=== PATIENT | female | born 1995 | race African-American/Black ===

== ENCOUNTER 2018-07-04 09:46 | Inpatient (IN) | payer OTHER ==
[2018-07-04 10:46] VITALS: BMI 44.2
[2018-07-04] MEDS: Lactated Ringer's 1,000 ML IV SCH ×2 (11:09→11:58)
[2018-07-04] MEDS ORDERED: Bicitra 30 ML UDCUP ONE (11:59)
[2018-07-04] MEDS ORDERED: Docusate 100 MG CAP PO PRN (12:01)
[2018-07-04] MEDS ORDERED: Acetaminophen 500 MG TAB PO PRN (12:01)
[2018-07-04] MEDS ORDERED: Promethazine HCl 25 MG/ML VIAL IM PRN ×2 (12:01→14:03)
[2018-07-04] MEDS ORDERED: Ondansetron PF 4 MG/2 ML Vial IVP PRN ×3 (12:01→14:55)
[2018-07-04 12:14] LABS: Hemoglobin 13.9 g/dL (12.0-16.0); Mean Corpuscular HGB CONC 34.5 g/dL (32.0-36.0); Mean Corpuscular Hemoglobin 30.1 pg (27.0-31.0); Mean Corpuscular Volume 87.3 fL (78.0-98.0); Mean Platelet Volume 7.6 fL (7.4-10.4); Platelet Count 243 thou/uL (130-400); RBC Distribution Width 12.2 % (11.5-14.5); Red Blood Cell (RBC) Count 4.61 mill/uL (4.20-5.40); White Blood Cell (WBC) Count 7.3 thou/uL (4.8-10.8)
[2018-07-04] MEDS ORDERED: Bicitra 30 ML UDCUP PO SCH (12:15)
[2018-07-04] MEDS ORDERED: CEFAZOLIN 2 GM in Premix Bag 1 BAG IVPB SCH (12:30)
[2018-07-04 12:53] LABS: HBSAg Index 0.25 S/CO (0-0.99); Hep B Surf Ag Non-Reactive S/CO (NonReactive)
[2018-07-04 13:43] LABS: Syphilis Antibody Nonreactive (Nonreactive); Syphilis Antibody Index 0.05 S/CO (<1.00 Non-Reactive)
[2018-07-04] MEDS ORDERED: Naloxone HCl 0.4 mg/ml Vial IVP PRN ×2 (14:03)
[2018-07-04] MEDS ORDERED: Ondansetron HCl/PF 4 MG/2 ML Vial IVP PRN (14:03)
[2018-07-04] MEDS ORDERED: HYDROmorphone 2 MG/ML VIAL SLOW IVP PRN (14:03)
[2018-07-04] MEDS ORDERED: Naloxone HCl 0.4 mg/ml Vial IV PRN (14:03)
[2018-07-04] MEDS ORDERED: L&D-Morphine 4 MG/ML VIAL SLOW IVP PRN (14:03)
[2018-07-04] MEDS ORDERED: diphenhydrAMINE 50 MG/ML VIAL IVP PRN (14:03)
[2018-07-04] MEDS ORDERED: Promethazine HCl 25 MG SUPP PR PRN (14:03)
[2018-07-04] MEDS ORDERED: Eucerin (Mineral Oil/Petrolatum,White) 30 gm Jar TOP PRN (14:03)
[2018-07-04] MEDS ORDERED: Meperidine HCl/PF 25 MG/ML VIAL SLOW IVP PRN (14:03)
--- NOTE | 2018-07-04 14:10 | PDOC.OPDEL ---
OB Operative/Delivery Note Delivery Dr/Surgeon: Leonides Assist: Canon Andres Pre-Delivery Diagnosis: scheduled section Procedure/Post Delivery Dx: repeat low transverse CS Weeks gestation: 39 Anesthesia: epidural - Findings A Sex: male - 1 min: 9 - 5 min: 9 - Additional Findings/Plan Placenta delivered: manual removal findings: low transverse hysterotomy without extension Estimated blood loss: 850 Compilations/Other Findings: Date of Procedure: 07/04/2018 Attending surgeon: Dr. Coyle Resident Surgeon: Dr. Elias Mackay Procedure: Repeat low transverse caesarean section X3 Preoperative Diagnosis: 1)Term intrauterine 2)Previous Postoperative Diagnosis: 1)Term intrauterine 2)Previous Anesthesia: epidural Indications: The patient is a 23 year old female at 39 weeks gestation who presents for a repeat scheduled x 3. Procedure in Detail: After risks, benefits, and alternatives were explained to the patient, she gave informed consent. Pre-operative antibiotics included Cefazolin 2 gram IV. The patient was taken to the operating room and spinal anesthesia was initiated. She was placed in the supine position with a left tilt and prepped and draped in usual sterile fashion. A Pfannenstiel incision was made with a scalpel and carried down to the level of the fascia which was sharply nicked. The fascial cut was extended bilaterally with Jorge sissors. The inferior and superior edges of the cut fascial edges were elevated with Christina clamps and the underlying rectus muscles were sharply and bluntly dissected free. The recti were divided digitally and retracted manually. The peritoneum was entered bluntly and retracted manually. Bladder blade was placed. Bladder flap was created with Metzenbaum scissors. A low transverse score was made with the scalpel and the uterus was entered in the midline with the scalpel. Clear fluid was seen. The hysterotomy was extended manually. The infant was noted to be vertex and was easily delivered by fundal pressure. Mouth and nares were bulb suctioned. Cord clamped and cut and grossly normal male was handed to waiting nurse. Cord blood was obtained. Placenta was manually extracted, found to be intact with 3 vessel cord and discarded. The uterus was externalized and the endometrium was curetted with a dry lap. The bladder blade was replaced and the uterus was closed with a running locking 0-Vicryl suture. An 0-Chromic suture was used to sew an anterior portion of the serosa in the running nonlocking fashion. Following this hemostasis was noted. The abdomen was irrigated with saline and suctioned free of clots. The uterus was internalized and the hysterotomy was again noted to be hemostatic. The fascia was closed with a running non-locking 0-PDS suture. The subcutaneous tissue was irrigated and bleeders cauterized. Subcutaneous tissue was then sutured with a 3 -0 Vicryl in the simple interrupted fashion. The skin was approximated with bertha and a pressure dressing was placed. All counts were correct. The patient tolerated the procedure well and was taken to the recovery room in stable condition. Estimated Blood Loss: 585ml Complications: None Specimens: Cord blood sent to lab for blood type Findings: Grossly normal male infant with Apgars of 9 and 9. Grossly normal placenta with 3 vessel cord discarded. Drains: Apple to gravity draining clear urine Post delivery plan: recovery in LICU
[2018-07-04] MEDS ORDERED: Ketorolac Tromethamine 30 MG/ML VIAL IVP SCH (14:15)
[2018-07-04] MEDS ORDERED: Communication Order-Pharmacy FS SCH (14:15)
[2018-07-04] MEDS ORDERED: NS / Oxytocin 40 units/1000ml 1,000 ML IV SCH (14:55)
[2018-07-04] MEDS ORDERED: diphenhydrAMINE 25 MG CAP PO PRN (14:55)
[2018-07-04] MEDS ORDERED: Lanolin Ointment 7 GM TUBE TOP PRN (14:55)
[2018-07-04] MEDS ORDERED: Bisacodyl 10 MG SUPP PR PRN (14:55)
[2018-07-04] MEDS: Ketorolac Tromethamine 30 MG/ML VIAL IVP PRN (17:54)
[2018-07-04] MEDS: Simethicone Chewable 80 MG TAB PO PRN (17:54)
[2018-07-04] MEDS: Ferrous Sulfate 325 MG TAB PO SCH (17:54)
[2018-07-05] MEDS: Ketorolac Tromethamine 30 MG/ML VIAL IVP PRN (01:17)
[2018-07-05] MEDS: Docusate Calcium (SURFAK) 240 MG CAP PO SCH ×3 (01:57→22:21)
[2018-07-05] MEDS ORDERED: Meperidine HCl/PF 25 MG/ML VIAL IM PRN (02:15)
[2018-07-05] MEDS ORDERED: HYDROcodone/Acetaminophen 5/325 mg Tablet PO PRN (02:15)
[2018-07-05 07:27] LABS: Hemoglobin 12.3 g/dL (12.0-16.0); Mean Corpuscular HGB CONC 33.9 g/dL (32.0-36.0); Mean Corpuscular Hemoglobin 30.1 pg (27.0-31.0); Mean Corpuscular Volume 88.9 fL (78.0-98.0); Mean Platelet Volume 7.4 fL (7.4-10.4); Platelet Count 189 thou/uL (130-400); Red Blood Cell (RBC) Count 4.07 mill/uL (4.20-5.40); White Blood Cell (WBC) Count 7.7 thou/uL (4.8-10.8)
[2018-07-05] MEDS ORDERED: Adacel (T-DAP) 0.5 ML SYRINGE IM ONE (09:00)
[2018-07-05] MEDS: Ferrous Sulfate 325 MG TAB PO SCH ×2 (09:03→15:32)
[2018-07-05] MEDS: Prenatal Vitamin 1 TAB PO SCH (09:04)
[2018-07-05] MEDS: HYDROcodone/Acetaminophen 5/325 mg Tablet PO PRN (13:45)
[2018-07-05] MEDS: Simethicone Chewable 80 MG TAB PO PRN (13:45)
[2018-07-05] MEDS: Ibuprofen 800 MG TAB PO SCH ×2 (13:47→22:21)
[2018-07-05] MEDS ORDERED: Ibuprofen 800 MG TAB PO SCH (22:00)
[2018-07-06] MEDS: Ibuprofen 800 MG TAB PO SCH ×3 (06:30→22:25)
[2018-07-06] MEDS: HYDROcodone/Acetaminophen 5/325 mg Tablet PO PRN ×2 (06:36→17:14)
[2018-07-06] MEDS: Prenatal Vitamin 1 TAB PO SCH (09:39)
[2018-07-06] MEDS: Ferrous Sulfate 325 MG TAB PO SCH ×2 (09:39→17:13)
[2018-07-06] MEDS: Docusate Calcium (SURFAK) 240 MG CAP PO SCH ×2 (09:39→22:25)
[2018-07-06 20:58] VITALS: TEMP 98.3
[2018-07-07] MEDS: Ibuprofen 800 MG TAB PO SCH ×2 (05:14→15:39)
[2018-07-07] MEDS: Prenatal Vitamin 1 TAB PO SCH (08:19)
[2018-07-07] MEDS: Docusate Calcium (SURFAK) 240 MG CAP PO SCH (08:20)
[2018-07-07] MEDS: Ferrous Sulfate 325 MG TAB PO SCH (08:20)
[2018-07-07 09:07] VITALS: BP 115/67
== END 2018-07-07 16:30 | disposition home or self-care (01) | DRG 788 ==
LOC: L&D 09:46 → 3SW 18:05
PROVIDERS: ADMIT Family Medicine; ATTEND Family Medicine
PROC: 10D00Z1 Extraction of Products of Conception, Low, Open Approach (ICD-10-PCS; principal; 2018-07-04)
DX: O34.211 Maternal care for low transverse scar from previous cesarean delivery (principal); Z37.0 Single live birth; Z3A.39 39 weeks gestation of pregnancy
CPT/HCPCS: 36415; 51702; 85027; 86780; 86850; 86900; 86901; 87340; J1200; J1885